=== PATIENT | male | born 1990 | race Caucasian/White ===

== ENCOUNTER 2018-08-02 17:14 | Emergency (ER) | payer MEDICAID ==
--- NOTE | 2018-08-02 17:57 | EDPHY ---
HPI/HX/ROS/PE/MDM Narrative: CHIEF COMPLAINT: Hematuria, rectal bleeding HPI: This patient is a healthy 28 year old male. He presents today complaining of hematuria and dysuria. He has had several episodes of hematuria over the last few months, each lasting several days. He endorses brownish-red color with clots. urinary frequency every 10-15 minutes. Associated dysuria. He denies fever, abdominal pain, or flank pain. Endorses some low back pain but this is consistent with his chronic lumbar pain. Today, his symptoms began around 15:45 and he presents for evaluation. The patient additionally complains of blood associated with bowel movements. He only notes blood when he wipes and denies melena or hematochezia. He endorses history of hemorrhoids. Finally, the patient also endorses occasional skin rashes and has had evaluations for possible psoriasis or eczema in the past. He also endorses a "friction burn" on his penis which occurs frequently with intercourse. He has followed up at the [facility] during another episode and had a negative UA and negative STI testing in the past. REVIEW OF SYSTEMS: A comprehensive 10 system review of systems is otherwise negative aside from elements mentioned in the history of present illness and medical decision making. PMH: Shoulder surgery. SOCIAL HISTORY: Patient is currently in a monogamous relationship, does not use any barrier contraceptive methods. He has intercourse with women only. He is employed at [employer]. PHYSICAL EXAM: General:Patient is alert, in no acute distress. ENT:Eyes are normal to inspection. ENT inspection normal. Neck: Normal inspection. Full range of motion. Respiratory:No respiratory distress. Breath sounds normal bilaterally. Cardiovascular: Regular rate and rhythm. Strong peripheral pulses. Normal cap refill. Abdomen:The abdomen is nontender to palpation. There are no peritoneal signs. There are normal bowel sounds. Genitourinary: 3 circular erythematous non-raised lesions on upper shaft of penis. No discharge. Back: Normal to inspection. No tenderness to palpation. Skin: Normal color. No rash. Warm and dry. Extremities: Normal appearance. Full range of motion. Neuro: Oriented x3. Normal motor function. Normal sensory function. ED Course: 28 year old male presents with intermittent hematuria, and dysuria as well as occasional blood per rectum. He additionally complains of several dry patchy lesions on his elbows and "friction kim" on his penis. On exam, he has three circular erythematous non-raised lesions on upper shaft of penis. Plan for UA, labs including CBC, chemistries. 19:31 Patient requested that I check for hemorrhoids as well. Normal external exam. No hemorrhoids or other abnormalities visualized. Reviewed laboratory results. UA positive for RBC, WBC, leuk esterase. The patient states he is in a monogamous relationship and does engage in unprotected intercourse. He states he has had negative STI testing at the [facility] multiple times, and that they have tested for "everything". Plan to consult with infectious disease regarding the patient's symptoms. 20:[address] Burt, infectious disease specialist. Discussed additional laboratory studies. Plan to order additional labs including HIV, GC/ chlamydia, syphilis. The patient will follow up outpatient with [facility]. Plan to administer 250mg IM ceftriaxone. Plan to discharge home in good condition. Prescription for Keflex provided. He will follow up with urology and ID for further evaluation. Follow up and return precautions discussed. The patient is comfortable with this plan. MDM: This is a young healthy male who presents with three primary issues, the relationship between which is unclear. His primary complaint is hematuria that is relatively painless and without fever. His UA shows significant RBCs but also LE and WBCS, suggesting a possible infectious etiology. He will be started on Keflex for this and will need outpatient urology follow-up. He complains also of mild painless hematochezia with normal external anal exam. I think this is most consistent with hemorrhoidal bleeding and there is no evidence of coagulopathy or severe GI bleed. He will need outpatient GI follow-up. Finally , although the patient did not initially complain of this, he has several round macules present on his glans penis, raising possibility of STI. I have sent Chlamydia, HIV, GC, syphillis testing and have arranged follow-up with Infectious Disease. - Data Points Laboratory Results: Laboratory Results 08/02/18 18:32 08/02/18 18:32 08/02/18 08/02/18 08/02/18 20:20 18:32 18:32 WBC RBC Hgb Hct MCV MCH MCHC RDW Plt Count MPV Neut % (Auto) Lymph % (Auto) [place] % (Auto) Eos % (Auto) Baso % (Auto) Nucleat RBC Rel Count Absolute Neuts (auto) Absolute Lymphs (auto) Absolute Monos (auto) Absolute Eos (auto) Absolute Basos (auto) Absolute Nucleated RBC Immature Gran % Immature Gran # Sodium Potassium Chloride Carbon Dioxide Anion Gap BUN Creatinine Estimated GFR Glucose Calcium Urine Color Urine Appearance Urine pH Ur Specific [place] Urine Protein Urine Ketones Urine Blood Urine Nitrate Urine Bilirubin Urine Urobilinogen Ur Leukocyte Esterase Urine RBC Urine WBC Ur Epithelial Cells Urine Glucose Syphilis IgG/IgM Ab Pending C.trachomatis RNA (TMA) Pending HIV 1&2 Antibody Pending N.gonorrhoeae RNA (TMA) Pending 08/02/18 08/02/18 08/02/18 18:32 18:32 18:32 WBC 9.91 10^3/uL H 10^3/uL (3.80-9.50) RBC 5.78 10^6/uL 10^6/uL (4.40-6.38) Hgb 16.3 g/dL g/dL (13.7-17.5) Hct 49.0 % % (40.0-51.0) MCV 84.8 fL fL (81.5-99.8) MCH 28.2 pg pg (27.9-34.1) MCHC 33.3 g/dL g/dL (32.4-36.7) RDW 12.8 % % (11.5-15.2) Plt Count 248 10^3/uL 10^3/uL (150-400) MPV 9.6 fL fL (8.7-11.7) Neut % (Auto) 64.2 % % (39.3-74.2) Lymph % (Auto) 22.0 % % (15.0-45.0) [place] % (Auto) 10.0 % % (4.5-13.0) Eos % (Auto) 3.2 % % (0.6-7.6) Baso % (Auto) 0.4 % % (0.3-1.7) Nucleat RBC Rel Count 0.0 % % (0.0-0.2) Absolute Neuts (auto) 6.36 10^3/uL 10^3/uL (1.70-6.50) Absolute Lymphs (auto) 2.18 10^3/uL 10^3/uL (1.00-3.00) Absolute Monos (auto) 0.99 10^3/uL H 10^3/uL (0.30-0.80) Absolute Eos (auto) 0.32 10^3/uL 10^3/uL (0.03-0.40) Absolute Basos (auto) 0.04 10^3/uL 10^3/uL (0.02-0.10) Absolute Nucleated RBC 0.00 10^3/uL 10^3/uL (0-0.01) Immature Gran % 0.2 % % (0.0-1.1) Immature Gran # 0.02 10^3/uL 10^3/uL (0.00-0.10) Sodium 138 mEq/L mEq/L (135-145) Potassium 4.6 mEq/L mEq/L (3.5-5.2) Chloride 99 mEq/L mEq/L (97-110) Carbon Dioxide 26 mEq/l mEq/l (22-31) Anion Gap 13 mEq/L mEq/L (6-14) BUN 25 mg/dL H mg/dL (7-23) Creatinine 1.2 mg/dL mg/dL (0.7-1.3) Estimated GFR > 60 Glucose 89 mg/dL mg/dL (70-100) Calcium 9.8 mg/dL mg/dL (8.5-10.4) Urine Color YELLOW Urine Appearance MODERATELY TURBID Urine pH 5.0 (5.0-7.5) Ur Specific [place] 1.029 (1.002-1.030) Urine Protein 1+ H (NEGATIVE) Urine Ketones NEGATIVE (NEGATIVE) Urine Blood 3+ H (NEGATIVE) Urine Nitrate NEGATIVE (NEGATIVE) Urine Bilirubin NEGATIVE (NEGATIVE) Urine Urobilinogen NEGATIVE EU EU (0.2-1.0) Ur Leukocyte Esterase 3+ H (NEGATIVE) Urine RBC 50-182 /hpf H /hpf (0-3) Urine WBC 50-182 /hpf H /hpf (0-3) Ur Epithelial Cells TRACE /lpf /lpf (NONE-1+) Urine Glucose NEGATIVE (NEGATIVE) Syphilis IgG/IgM Ab C.trachomatis RNA (TMA) HIV 1&2 Antibody N.gonorrhoeae RNA (TMA) Medications Given: Discontinued Medications Ceftriaxone Sodium (Rocephin Im Syringe) 250 mg IM ONCE ONE PRN Reason: Protocol Stop: 08/02/18 20:21 Last Admin: 08/02/18 20:59 Dose: 250 mg General Time Seen by Provider: 08/02/18 17:54 Initial Vital Signs: Initial Vital Signs Temperature (C) 36.9 C 08/02/18 17:23 Heart Rate 69 08/02/18 17:23 Respiratory Rate 16 08/02/18 17:23 Blood Pressure 143/77 H 08/02/18 17:23 O2 Sat (%) 95 08/02/18 17:23 O2 Delivery Mode Room Air Allergies/Adverse Reactions: No Known Allergies Allergy (Verified 08/02/18 17:22) Home Medications: Medication Instructions Recorded Albuterol 08/02/18 Cephalexin [Keflex] 500 mg PO TID #21 cap 08/02/18 Departure - Departure Disposition: Home, Routine, Self-Care Clinical Impression: Urinary tract infection, Hematuria Condition: Good Instructions: Urinary Tract Infection in Men (ED), Hematuria (ED) Additional Instructions: Follow up with infectious disease for further evaluation in the next week. [facility] will be able to access your test results. You may also call the ER for results in 48 hours. Follow up with urology for further evaluation. We have provided a referral to our urologist promotions executive producer. Take Keflex as prescribed. It is important to finish your entire course of antibiotics. Return to the Emergency Department for fever, worsening pain, flank pain or failure to improve within 72 hours. Referrals: Ria Burt MD [Medical Doctor] - As per Instructions Viv Camargo MD [Medical Doctor] - As per Instructions Prescriptions: Cephalexin [Keflex] 500 mg PO TID #21 cap Report Scribed for: Chuckie Israel Report Scribed by: Antonella Mcknight Date of Report: 08/02/18 Time of Report: 17:57 Physician Review and Approval Statement: Portions of this note were transcribed by an ED scribe. I personally performed the history, physical exam, and medical decision making; and confirm the accuracy of the information in the transcribed note.
[2018-08-02 18:45] LABS: PLATELET COUNT 248 10^3/uL (150-400)
[2018-08-02 21:11] VITALS: BP 120/75
[2018-08-02 22:21] LABS: HIV TYPE 1 AND 2 NEGATIVE (NEGATIVE)
[2018-08-03 11:55] LABS: GC AMPLIFICATION GENPROBE NEGATIVE (NEGATIVE)
== END 2018-08-02 21:13 | disposition home or self-care (01) ==
DX: N39.0 Urinary tract infection, site not specified (principal); R31.9 Hematuria, unspecified; K62.5 Hemorrhage of anus and rectum
CPT/HCPCS: J0696